=== PATIENT | male | born 1950 | race African-American/Black ===

== ENCOUNTER 2017-11-10 09:56 | Outpatient (CLI) | payer MEDICARE ==
[~2017-11-10] VITALS: Ht 190.5 cm; Wt 95.9 kg
[2017-11-10 14:25] VITALS: Ht 190.5 cm; Wt 95.9 kg
== END 2017-11-10 20:30 ==
LOC: D.OPS 09:56
DX: D50.8 Other iron deficiency anemias (principal); Z01.812 Encounter for preprocedural laboratory examination